=== PATIENT | male | born 1980 | race Caucasian/White ===

== ENCOUNTER 2019-07-10 09:03 | Emergency (ER) | payer OTHER, SELFPAY ==
[2019-07-10 09:04] VITALS: BP 120/77; PULSE 61; RESP 19; TEMP 36.9; O2SAT 98; BMI 27.7
--- NOTE | 2019-07-10 09:14 | EKG12_ITS ---
Test Reason : CP Blood Pressure : / mmHG Vent. Rate : 067 BPM Atrial Rate : 067 BPM P-R Int : 146 ms QRS Dur : 084 ms QT Int : 392 ms P-R-T Axes : 042 065 047 degrees QTc Int : 414 ms Normal sinus rhythm Normal ECG Confirmed by ALEX COULTER, ZAHIDA ([id number]), avid editor CUONG ROY ([id number]) on 07/11/2019 1:41:27 PM Referred By: MAGDALENO Confirmed By:ZAHIDA JOHNSON MD
--- NOTE | 2019-07-10 09:14 | RAD_ITS ---
STUDY: X-RAY CHEST REASON FOR EXAM: Male, 39 years old. Chest pain TECHNIQUE: Single AP portable view of the chest. COMPARISON: None. FINDINGS: The lungs are clear and expanded. There is no demonstrated pleural abnormality. Normal size heart. Normal mediastinum and fariba. Normal visualized pulmonary arteries. Normal visualized aortic arch and descending thoracic aorta. Normal visualized thoracic spine. Normal visualized ribs, clavicles, and shoulders. There is no demonstrated abnormality of the visualized soft tissue structures of the upper abdomen. RAD/Chest 1 View (Portable) IMPRESSION: Normal x-ray examination of the chest. Electronically Signed: Prem Fink MD at 9:38 EDT Tel , Service support ,
[2019-07-10] MEDS: 0.9% Normal Saline 1,000 ML 150 ML IV (09:26)
[2019-07-10] MEDS: Aspirin 81 MG TAB.CHEW 324 MG PO (09:26)
[2019-07-10] MEDS: Nitroglycerin SL (ED/IMG/CATH) 0.4 MG TABLET SUBLINGUAL (09:28)
[2019-07-10 09:30] VITALS: BP 143/88; PULSE 70; RESP 16; O2SAT 98
[2019-07-10 09:35] VITALS: BP 143/79; PULSE 75; RESP 16; O2SAT 97
--- NOTE | 2019-07-10 09:36 | ED.RN ---
denies cp, has sob. head spining after 1 nitro. sob same. remains cp free/
[2019-07-10 09:47] LABS: Absolute Neutrophil Count 2.6 X10^3/uL (2.0-7.7); Basophil# 0.05 X10^3/uL; Eosinophil# 0.07 X10^3/uL; Eosinophils% 1.4 % (0-5); Hematocrit 44.2 % (40-54); Lymphocyte % 36.4 % (19-41); Mean Corp Hgb Conc 33.9 g/dL (32-36); Mean Corpuscular Hgb 29.2 pg (27.0-32.0); Monocyte# 0.44 X10^3/uL; Monocyte% 8.9 % (0-10); NRBC Flagged by Analyzer 0 % (0-5); Neutrophil # 2.58 X10^3/uL (2.7-7.7); Neutrophil % 52.1 % (47-70); Platelet Count 217 K/mm3 (150-450); RBC Distribution Width CV 12.2 % (11.6-14.6); RBC Distribution Width SD 38.7 fl (35.1-43.9); Red Blood Count 5.14 M/mm3 (4.6-6.2)
[2019-07-10 10:04] LABS: Anion Gap 4 (5-15); BUN 19 mg/dL (7-18); BUN/Creat Ratio 17.1 RATIO (10-20); Calcium,Total 9.2 mg/dL (8.5-10.1); Chloride 107 mmol/L (98-107); Creatinine, Serum 1.11 mg/dL (0.70-1.30); EST Glomerular Filtration Rate 78 mL/min (>60); Est Glom Filt Rate - Afr Amer 95 mL/min (>60); Estimated Creatinine Clearance 106.79 ml/min; Glucose 101 mg/dL (74-106); Potassium 4.2 mmol/L (3.5-5.1); Sodium Level 138 mmol/L (136-145)
[2019-07-10 10:08] VITALS: BP 120/78; PULSE 55; RESP 17; O2SAT 96
[2019-07-10 10:14] LABS: D-Dimer Quantitative (DVT/PE) < 0.27 FEU/ug/m (0.27-0.49)
--- NOTE | 2019-07-10 10:26 | ED.VISSUMM ---
- ER Visit Summary Date of Service: 07/10/19 Chief Complaint: [Chest pain] History of Present Illness: The patient is a 39 M [present to the emergency department with complaint of chest discomfort that started 3 days ago. Patient states that he has had continuous dull ache in the center of his chest that at times will radiate to his shoulders. Patient says he has just minimal discomfort at this point. He feels somewhat short of breath with it. He denies any diaphoresis. He denies any nausea or vomiting associated with it. Patient has had similar symptoms in the past but years ago he was told it was stress. Patient has been under stress at work. Patient has no medical history. Patient states that he has uncles that have at a young age in their 40s and 50s from [place]. No immediate family history of heart disease. Denies recent travel or surgery.] Physical Examination: [HEENT-PERRLA, EOMI. Cranial nerves II through XII grossly intact. TMs clear. Mucous membranes moist. No adenopathy. Cardiovascular-regular rate and rhythm without murmur or ectopy Lungs-clear to auscultation, chest wall stable without crepitus or subcu emphysema Abdomen-normoactive bowel sounds, soft, nontender, no rebound or rigidity, no peritoneal signs. Extremities-intact ?4, normal range of motion, normal pulses, atraumatic] Test Results: [EKG obtained on arrival showed a sinus rhythm with a ventricular rate of 67 bpm with no acute segment changes. CBC with it was normal. Chemistries were normal. Troponin was less than 0.15. D-dimer was less than 0.27. Chest x-ray was normal.] Emergency Department Course and Treatment: [Patient received aspirin on the arrival to the emergency department. Patient received sublingual nitro which did not improve his symptoms at all.] Treatment Plan: [Patient's ISAIAS risk score is a 1 because he does take baby aspirin on a relatively regular basis. His heart score is 0. I suspect patient is very low risk given that he has had continuous pain for over 3 days and normal EKG and troponin. Patient really has no significant risk factors for heart disease. Patient will be advised to follow-up with his primary care physician within next 3 to 5 days. Advised to return if worsening pain increasing shortness of breath, or conditions worsen anyway.] Disposition: [Discharged home stable condition.] Impression: [Chest pain-etiology uncertain] This note was generated with Harvest Power dictation software. It may contain incorrect words, spelling, and punctuation that were not noted in review of the chart prior to signing ED Disposition - Plan for ED Patient: Referrals: Care Physician,No Primary [Primary Care Provider] -
--- NOTE | 2019-07-10 10:29 | ED.DEP ---
ED Disposition - Plan for ED Patient: Instructions: CHEST PAIN, Uncertain Cause Referrals: Care Physician,No Primary [Primary Care Provider] - 3-5 Days
--- NOTE | 2019-07-10 10:29 | ED.DEP ---
ED Disposition - Plan for ED Patient: Instructions: CHEST PAIN, Uncertain Cause Referrals: Care Physician,No Primary [Primary Care Provider] - 3-5 Days
[2019-07-10 11:18] VITALS: BP 139/95; PULSE 53; RESP 18; O2SAT 99
== END 2019-07-10 11:19 | disposition home or self-care (01) ==
LOC: ED 09:47
PROVIDERS: Emergency Provider Emergency Medicine
DX: R07.9 Chest pain, unspecified (principal); R06.02 Shortness of breath; Z79.82 Long term (current) use of aspirin
CPT/HCPCS: 71045; 80048; 84484; 85025; 85379; 93005; 99285; A4216

== ENCOUNTER 2023-06-04 10:28 | Emergency (ER) | payer OTHER, SELFPAY ==
[2023-06-04 10:29] VITALS: BP 120/74; PULSE 70; RESP 14; TEMP 36.4; O2SAT 98
--- NOTE | 2023-06-04 11:04 | US_ITS ---
STUDY: ABDOMINAL ULTRASOUND - RIGHT UPPER QUADRANT REASON FOR VISIT: Male, 43 years old . Right upper quadrant pain. TECHNIQUE: Ultrasound evaluation of the right upper quadrant was performed with real-time and static roland-scale imaging. TECHNICAL QUALITY: Adequate. COMPARISON: None. FINDINGS: Liver: The liver measures 16 cm. There is increased echogenicity consistent with fatty infiltration. The bile ducts are within normal limits. There is hepatic color flow. The direction of portal flow is hepatopetal. There is no demonstrated mass lesion. Gallbladder: Normal distended gallbladder. The gallbladder wall measures 2.0 mm. There is a negative sonographic Cabrera''s sign. There is no pericholecystic fluid. There are no gallstones. There is a 4 mm x 6 mm x 4 mm polyp adherent to the gallbladder wall. Common Bile Duct (C.B.D.): The common bile duct measures 3.0 mm. Pancreas: Normal size of the head, body and tail of the pancreas. There is normal echogenicity of the pancreas. There is no demonstrated pancreatic mass or cyst. Right Kidney: Normal size of the right kidney. The right kidney measures 10.8 cm x 6.2 cm x 5.2 cm. Normal renal cortex. The right cortex measures 1.2 cm. There is no demonstrated renal mass or cyst. There is no right hydronephrosis. US/Gallbladder IMPRESSION: Fatty infiltration of the liver. 4 mm x 6 mm x 4 mm gallbladder polyp. Electronically Signed: Abdoulaye Green MD at 12:38 EDT ,
--- NOTE | 2023-06-04 11:05 | ED.VIS.GI ---
HPI HPI - GI History of Present Illness Chief Complaint: Abd Pain Narrative Narrative: 43-year-old male presenting with epigastric and right upper quadrant pain. He states that started at 11 PM last night. He states he was at a birthday constitution party yesterday and ate hotdogs with sloppy Rakesh on them to make it like a [place] hot dog. He also states that he had potato salad. He ate this at about 6 or 7:00. The pain started much later. He states it was sharp in his epigastric region. It felt like somebody was twisting a knife into him. It lasted for 2 hours and then he fell asleep. This morning he feels much better but still has pain. He states it is tolerable at this point, but he is concerned he had a gallbladder attack. No history of abdominal surgeries. Denies any medical problems PFSH PFSH Home Medications aspirin 81 mg tablet,delayed release 81 mg PO QHS 07/10/19 [History Last Taken Unknown] melatonin 5 mg tablet 5 mg PO DAILY 07/10/19 [History Last Taken Unknown] Allergy/AdvReac Type Severity Reaction Status Date / Time No Known Allergies Allergy Verified 06/04/23 10:29 Social History Smoking Status: Former smoker ROS ROS ED Constitutional Constitutional ED: Denies chills, fever(s) or sweats Eyes Eyes: Denies blurry vision or change in vision ENT ENT ED: Denies ear pain or sore throat Cardiovascular Cardiovascular: Denies chest pain, palpitations or racing heartbeat Respiratory/Chest Respiratory/Chest: Denies cough, dyspnea or sputum Gastrointestinal Gastrointestinal: Reports abdominal pain and nausea; Denies constipation, diarrhea or vomiting Genitourinary Genitourinary ED: Denies dysuria, hematuria or urinary frequency Musculoskeletal Musculoskeletal: Denies arthralgias, myalgias or neck pain Integumentary Denies abscess, Abrasions or rash Neurologic Neurologic: Denies headache(s), paresthesias or weakness Psychiatric Psychiatric: Denies anxiety, depression, suicidal ideation or suicidal thoughts Endocrine Endocrinology: Denies polydipsia or polyuria EXAM Physical Exam Const Vital Signs: 06/04/23 10:29 Temperature 97.6 F L Temperature Source Temporal Pulse Rate 70 Respiratory Rate 14 Blood Pressure 120/74 Blood Pressure Mean 89 Pulse Ox 98 Oxygen Delivery Method Room Air Positive well nourished General Appearance ED: NAD; Negative for pallor HEENT Reports moist mucous membranes normocephalic and atraumatic Eyes PERRL and EOMs intact bilaterally General Eye ED: Negative for pale conjunctiva or scleral icterus Resp normal respiratory effort GI Palpation: tender epigastric Back/Spine no CVA tenderness Neuro CN's II-XII intact bilaterally Sensorium / Orientation: alert Psych mental status grossly normal Skin General Skin Exam: Negative for jaundice or pallor MDM MDM MDM Narrative Medical decision making narrative: Patient presenting with epigastric pain. He had nausea but did not vomit. The worst of it was last evening. Now tolerable. He did not have any chest pain. Patient states he ate hotdogs with sloppy Rakesh mixed on them and potato salad prior to the pain starting. He states he had this once before about a year ago and was told it was a stomach. He was not drinking alcohol yesterday. He denies history of pancreatitis. He is not on a PPI currently. Differential includes but not limited to gastritis, peptic ulcer disease, GERD, pancreatitis, cholelithiasis, cholecystitis, choledocholithiasis, colitis. CBC will be obtained to assess white blood cell count, hemoglobin, platelets. CMP to assess liver function, renal function, electrolytes. Lipase to assess for pancreatitis. Patient does not have a hank Cabrera sign but I will obtain a right upper quadrant ultrasound. CBC and CMP unremarkable. Lipase negative patient feels somewhat improved after GI cocktail although his pain is not all the way gone. Right upper quadrant ultrasound was obtained and is negative for acute cholecystitis, cholelithiasis, but there is a gallbladder polyp. Patient counseled on these findings. Discussed foods to avoid given his symptoms are most likely coming from his stomach. I offered to put him on omeprazole but he declines and states he will change his diet. Impression: 1. Acute gastritis Lab Data Labs: Laboratory Results - last 24 hr 06/04/23 11:15 WBC 7.3 RBC 4.81 Hgb 14.1 Hct 42.5 MCV 88.4 MCH 29.3 MCHC 33.2 RDW Std Deviation 40.3 RDW Coeff of Napoleon 12.5 Plt Count 212 MPV 8.9 Immature Gran % (Auto) 0.400 Neut % (Auto) 80.6 H Lymph % (Auto) 13.6 L [place] % (Auto) 4.4 Eos % (Auto) 0.5 Baso % (Auto) 0.5 Absolute Neuts (auto) 5.9 Absolute Lymphs (auto) 0.99 Nucleated RBC % 0 Sodium 138 Potassium 4.2 Chloride 109 H Carbon Dioxide 25.0 Anion Gap 4 L BUN 14 Creatinine 0.97 Est GFR (MDRD) Af Amer 109 Est GFR (MDRD) Non-Af 90 BUN/Creatinine Ratio 14.5 Glucose 117 H Calcium 8.6 Total Bilirubin 0.60 AST 17 ALT 38 Alkaline Phosphatase 55 Total Protein 6.4 Albumin 3.5 Globulin 2.9 Albumin/Globulin Ratio 1.2 Lipase 31 Radiography Diagnostic Testing: Clinical Impression(s) from Imaging Studies Gallbladder Ultrasound 06/04/23 11:04 IMPRESSION: Fatty infiltration of the liver. 4 mm x 6 mm x 4 mm gallbladder polyp. Electronically Signed: Abdoulaye Green MD at 12:38 EDT , Discharge Plan Triage Chief Complaint: Abd Pain ED Provider: Fredis Martinez Dx/Rx/DC Orders Instructions: ED GERD (Adult), ED Gastritis (Adult) Prescriptions: No Action aspirin 81 MG tablet,delayed release (DR/EC) 81 mg PO QHS melatonin 5 MG tablet 5 mg PO DAILY Primary Care Provider: Care Physician,No Primary Referrals: Syeda Layton MD [Med Staff - Chief Investigator] - 3-5 Days if not improving Care Physician,No Primary [Primary Care Provider] - Disposition Disposition: Home, Self Care
[2023-06-04 11:31] LABS: Absolute Lymphocyte Count 0.99 X10^3/uL (0.83-4.51); Absolute Neutrophil Count 5.9 X10^3/uL (2.0-7.7); Basophil# 0.04 X10^3/uL; Basophil% 0.5 % (0-1); Eosinophil# 0.04 X10^3/uL; Eosinophils% 0.5 % (0-5); Hematocrit 42.5 % (40-54); Hemoglobin 14.1 g/dL (13.0-16.5); Lymphocyte # 0.99 X10^3/ul (0.83-4.51); Lymphocyte % 13.6 % (19-41); Mean Corp Hgb Conc 33.2 g/dL (32-36); Mean Corpuscular Hgb 29.3 pg (27.0-32.0); Mean Corpuscular Volume 88.4 fL (80-94); Mean Platelet Vol. 8.9 fl (6.2-12.0); Monocyte# 0.32 X10^3/uL; Monocyte% 4.4 % (0-10); NRBC Flagged by Analyzer 0 % (0-5); Neutrophil # 5.88 X10^3/uL (2.7-7.7); Neutrophil % 80.6 % (47-70); Platelet Count 212 K/mm3 (150-450); RBC Distribution Width CV 12.5 % (11.6-14.6); RBC Distribution Width SD 40.3 fl (35.1-43.9); Red Blood Count 4.81 M/mm3 (4.6-6.2); White Blood Count 7.3 K/mm3 (4.4-11.0)
[2023-06-04 11:44] LABS: ALB/GLOB Ratio 1.2 RATIO (0.9-2.4); AST(SGOT) 17 U/L (15-37); Alanine Aminotransfer ALT/SGPT 38 U/L (16-61); Albumin, Serum 3.5 g/dL (3.2-5.0); Alkaline Phosphatase 55 U/L (45-117); Anion Gap 4 (5-15); BUN 14 mg/dL (7-18); BUN/Creat Ratio 14.5 RATIO (10-20); Calcium,Total 8.6 mg/dL (8.5-10.1); Chloride 109 mmol/L (98-107); Creatinine, Serum 0.97 mg/dL (0.70-1.30); EST Glomerular Filtration Rate 90 mL/min (>60); Est Glom Filt Rate - Afr Amer 109 mL/min (>60); Globulin 2.9 g/dL (2.2-4.2); Glucose 117 mg/dL (74-106); Lipase 31 U/L (13-75); Potassium 4.2 mmol/L (3.5-5.1); Protein, Total 6.4 g/dL (6.4-8.2); Sodium Level 138 mmol/L (136-145)
--- NOTE | 2023-06-04 12:15 | CM.ED ---
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 Patient was seated on hospital bed and agreeable to speak with SW with his present. SW inquired about patient's insurance and current PCP. Patient verified insurance and reports his PCP retired and he has been reassigned a PCP that he hasn't met with yet so unsure of their name. Patient declined a list of local PCPs in network with patient's insurance and accepting new patients. Patient voiced no other needs at this time. SW remains available if needs arise. Shannon Harris SKI PATROL, ESSENCE
[2023-06-04 13:00] VITALS: BMI 27.9
[2023-06-04] MEDS: Mag Hydrox/Al Hydrox/Simeth 30 ML UDC PO (13:40)
[2023-06-04 13:56] VITALS: BP 134/78; PULSE 74; RESP 14; TEMP 36.6; O2SAT 99
== END 2023-06-04 13:57 | disposition home or self-care (01) ==
PROVIDERS: Emergency Provider Student in an Organized Health Care Education/Training Program; Visit Provider Student in an Organized Health Care Education/Training Program
DX: K29.00 Acute gastritis without bleeding (principal); K82.4 Cholesterolosis of gallbladder; Z79.82 Long term (current) use of aspirin; Z79.899 Other long term (current) drug therapy; Z87.891 Personal history of nicotine dependence
CPT/HCPCS: 76705; 80053; 83690; 85025; 99283

== ENCOUNTER 2024-07-19 07:08 | Emergency (ER) | payer OTHER, SELFPAY ==
[2024-07-19 07:08] VITALS: BP 156/87; PULSE 70; RESP 18; TEMP 35.5; O2SAT 96; BMI 30.9
--- NOTE | 2024-07-19 07:14 | EX.ED.GENINJ ---
HPI History of Present Illness Chief Complaint: [facility] Home Medications ?Medication ?Instructions ?Recorded ?Last Taken ?Type aspirin 81 mg tablet,delayed 81 mg PO QHS 07/10/19 Unknown History release melatonin 5 mg tablet 5 mg PO DAILY 07/10/19 Unknown History omeprazole 20 mg capsule,delayed 20 mg PO DAILY #30 CAPSULES 06/04/23 Unknown Rx release Allergy/AdvReac Type Severity Reaction Status Date / Time No Known Allergies Allergy Verified 07/19/24 07:10 Social History Smoking Status: Former smoker EXAM Physical Exam Const Vital Signs: 07/19/24 07:08 07/19/24 08:08 Temperature 95.9 F L Temperature Source Temporal Pulse Rate 70 76 Respiratory Rate 18 19 H Blood Pressure 156/87 H 142/81 H Blood Pressure Mean 110 101 Pulse Ox 96 100 Oxygen Delivery Method Room Air Room Air MDM MDM MDM Narrative Medical decision making narrative: HISTORY OF PRESENT ILLNESS: 44-year-old male presents with feeling a pop in his left shoulder. States he was picking something up at work [employer]. He further states He has a history of shoulder dislocation on the right side. He notes today he was helping lifting up a louvre when he felt a pop in his left shoulder. He is concerned that it may be dislocated. He denies loss of sensation or loss of movement in the left upper extremity. Denies any history of shoulder surgery to the left shoulder. Denies any neck or back pain. REVIEW OF SYSTEMS: Pertinent positives: Shoulder pain Pertinent negatives: Neck/back pain, loss of sensation or movement PHYSICAL EXAM: Nursing triage notes reviewed, Vital signs reviewed Constitutional: please see mdm Lungs: Clear to auscultation, No wheezing or rales. No increased work of breathing, no conversational dyspnea, no accessory muscle use, no nasal flaring. No respiratory distress noted Heart: Regular rate and rhythm, No murmurs, No rubs and No gallops, 2+ distal pulses (radial, femoral, posterior tibial) in all extremities Extremities: No edema, no obvious clavicular deformity, no TTP over left trapezius, no obvious step-off deformity, intact abduction and adduction of the left shoulder although there was some weakness secondary to pain. No obvious TTP over left AC joint. Neuro: intact 5/5 strength with ok sign (median), intact finger abduction (ulnar) intact wrist extension (radial n). Intact sensation in the radial, ulnar, and median nerve distributions. Intact active neurofunction. Skin: No rash or lesions noted MEDICAL DECISION MAKING: Chief Complaint: Shoulder pain External records reviewed: Reviewed prior imaging studies: No recent advanced imaging of the involved extremity MDM Narrative: The patient was initially hypertensive with a blood pressure 156/87 otherwise afebrile, nontoxic-appearing. Exam without obvious sign of dislocation or obvious deformity. I considered the following differential diagnosis: Shoulder fracture, dislocation, AC joint sprain/dislocation, clavicular fracture/dislocation. Rotator cuff injury I obtained an x-ray to further elucidate the etiology of the patient's complaint. ALL IMAGES (IF OBTAINED) HAVE BEEN PERSONALLY REVIEWED AND INTERPRETED BY MYSELF. X-ray of the shoulder was read reviewed personally myself and showed no evidence of obvious bony abnormality. The patient and/or family, caregivers express understanding. The patient and/or family, caregivers agrees with the plan. Shared decision making: I will have a discussion with the patient and or visitors regarding risk/benefits of further testing or admission. They will be made aware of of the risk/benefits inherent in this decision they will be given the opportunity to voice understanding. Total critical care time today provided was at least 0 minutes. This excludes separately billable procedures. Critical care time (if documented) is secondary to the patient having high probability of clinically significant/life threatening deterioration in the patient's condition which required my urgent intervention. Impression: 1. Acute left shoulder pain 2. Rotator cuff strain Dispo: Discharge home This note was generated with Quofore dictation software. It may contain incorrect words, spelling, and punctuation that were not noted in review of the chart prior to signing. 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 Electronically Signed: Thu Wolff MD at 8:14 EDT Reading Location ID and State: [facility] / [place] Tel , Service support , Discharge Plan Triage Chief Complaint: Dislocation ED Provider: Gomez Astudillo Dx/Rx/DC Orders Instructions: Rotator Cuff Injury Prescriptions: No Action aspirin 81 MG tablet,delayed release (DR/EC) 81 mg PO QHS melatonin 5 MG tablet 5 mg PO DAILY omeprazole 20 mg capsule,delayed release(DR/EC) 20 mg PO DAILY Qty: 30 0RF Stand Alone Forms: ED Work / School Excuse Primary Care Provider: Care Physician,No Primary Referrals: [facility] [Non-Staff] - Activity Restrictions/Additional Instructions: Thank you for trusting us with your care today! Please take Tylenol (2 pills, 650 mg), ibuprofen (2 pills, 400 mg) every 6 hours as needed for pain and fever control. A sling has been provided. Please remove the sling daily and perform range of motion exercises to prevent adhesive capsulitis (frozen shoulder). Please employ progressive mobilization exercises to increase range of motion and to improve healing time. This initially should just be range of motion until you feel pain at least 3 times per day. Please flex and extend your shoulder, internally externally rotate your shoulder, bring the shoulder away from the body and towards the body. As range of motion increases and your pain decreases please continue these exercises and add additional weight to improve strength, mobility and functionality of your rotator cuff. Please return to the emergency department if your symptoms change or worsen. Please follow with [facility] for further outpatient evaluation and management. Print Language: [place]ian Disposition Disposition: Home, Self Care Discharge Date/Time: 07/19/24 08:39
--- NOTE | 2024-07-19 07:20 | RAD_ITS ---
INDICATION: left shoulder pain EXAMINATION/TECHNIQUE: X-RAY - LEFT XR Shoulder Min 2 Views 2 VIEWS COMPARISON: No relevant prior comparison study available FINDINGS: SOFT TISSUES: No soft tissue swelling or gas. No radiopaque foreign body. 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 No acute fracture or subluxation.. Normal alignment. Preservation of the joint space.. No sclerotic or destructive changes observed. 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 Electronically Signed: Thu Wolff MD at 8:14 EDT ,
[2024-07-19 08:08] VITALS: BP 142/81; PULSE 76; RESP 19; O2SAT 100
== END 2024-07-19 08:39 | disposition home or self-care (01) ==
PROVIDERS: Emergency Provider Emergency Medicine; Visit Provider Emergency Medicine
DX: S46.012A Strain of muscle(s) and tendon(s) of the rotator cuff of left shoulder, initial encounter (principal); X50.0XXA Overexertion from strenuous movement or load, initial encounter; Y99.0 Civilian activity done for income or pay; Z87.891 Personal history of nicotine dependence
CPT/HCPCS: 73030; 99282

== ENCOUNTER 2025-05-17 09:56 | Emergency (ER) | payer OTHER, SELFPAY ==
[2025-05-17 09:57] VITALS: BP 158/90; PULSE 86; RESP 18; TEMP 36.9; O2SAT 97; BMI 30.2
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
[2025-05-17 10:57] VITALS: BP 135/94; PULSE 76; RESP 18; O2SAT 95
[2025-05-17 11:00] VITALS: BP 138/87; PULSE 72; RESP 18; O2SAT 96
[2025-05-17 12:00] VITALS: BP 141/78; PULSE 78; RESP 18; O2SAT 96
[2025-05-17 13:00] VITALS: BP 139/99; PULSE 81; RESP 16; TEMP 36.8; O2SAT 99
== END 2025-05-17 13:16 | disposition home or self-care (01) ==
PROVIDERS: Emergency Provider Emergency Medicine; PCP Physician Assistant; Visit Provider Emergency Medicine
DX: Z04.2 Encounter for examination and observation following work accident (principal); X00.0XXA Exposure to flames in uncontrolled fire in building or structure, initial encounter; X00.1XXA Exposure to smoke in uncontrolled fire in building or structure, initial encounter; X00.8XXA Other exposure to uncontrolled fire in building or structure, initial encounter; Y99.0 Civilian activity done for income or pay; Z79.82 Long term (current) use of aspirin; Z79.899 Other long term (current) drug therapy; Z87.891 Personal history of nicotine dependence
CPT/HCPCS: 99282